=== PATIENT | male | born 1980 | race Caucasian/White ===

== ENCOUNTER 2024-05-26 15:37 | Emergency (ER) | payer BC, SELFPAY ==
--- NOTE | ~2024-05-26 | CT_ITS ---
EXAMINATION: CT FACIAL BONES WITH CONTRAST CLINICAL INFORMATION: Right orbit swelling. Jaw pain. COMPARISON: CT orbits dated 05/17/2024. TECHNIQUE: Contrast enhanced computed tomography of the facial bones was performed. 85 mL of Omnipaque [address] examination was performed using dose optimization techniques as appropriate, variously including the following: *Automated exposure control *Adjustment of mA and/or kV according to patient size (this includes techniques or standardized protocols for targeted exams where dose is matched to indication/reason for exam; i.e. extremities or head) *Use of iterative reconstruction technique DLP: 591 mGy-cm FINDINGS: There is mild right preseptal periorbital soft tissue swelling, similar to slightly less than that seen on examination dated 05/17/2024. There are no peripherally enhancing fluid collections suggest abscess and there is no extension into the post septal soft tissues. There is no acute facial bone fracture. There is a stable left maxillary sinus mucosal retention cyst. There is a leftward deviation of the nasal septum. The visualized brain parenchyma is normal in appearance. The mastoid air cells are clear. CT/CT facial bones w IV con IMPRESSION: There is mild right preseptal periorbital soft tissue swelling suggesting preseptal cellulitis. No acute facial bone fracture.
--- NOTE | 2024-05-26 15:40 | ED_ITS ---
HPI - Eye Problem General Chief complaint: Eye Problems Stated complaint: Eye infection, was told to come in by infectious Time Seen by Provider: 05/26/24 16:38 Source: patient Mode of arrival: ambulatory Limitations: no limitations History of Present Illness HPI Narrative: Patient is a 43-year-old male who presents to the emergency department for evaluation. He reports he was admitted to [facility] for a few days, discharged 05/12/2024 after treatment for right orbital cellulitis, received IV Unasyn, reporting he was discharged home with Bactrim and minocycline. Had an outpatient follow-up with his ENT yesterday, infection had not completely resolved and he was restarted on Bactrim. He is pending an outpatient MRI for further evaluation. He reports he additionally has been experiencing recurrent sinusitis at least monthly. He reports pain with movement of the eye, increasing swelling, blurred vision, and yellow discharge. Related Data Allergies Allergy/AdvReac Type Severity Reaction Status Date / Time acetaminophen [From Percocet] Allergy Unknown ITCHING Unverified 07/13/20 16:30 latex Allergy Rash Verified 05/26/24 15:44 nut - unspecified Allergy Anaphylaxis Verified 05/26/24 15:47 codeine [Codeine] AdvReac Intermediate ITCHING Unverified 07/13/20 16:30 cefprozil [From Cefzil] AdvReac Unknown VOMITING Unverified 07/13/20 16:30 From Percocet Allergy Unknown ITCHING Uncoded 07/13/20 16:30 Review of Systems 2 Review of Systems: Yes all other systems are reviewed and are negative PMFSH Past Medical History Attestation statement: The following information was validated with the patient. Source: old records reviewed Social History Social History Smoked in Last 30 Days: No Use of substances other than those prescribed or required for medical reasons: No Advance Directives: No Advance Directives Information Provided: No Physical Exam 2 Vital Signs: Vital Signs: Last Vital Signs Temp 98.3 F 05/26/24 20:00 Pulse 75 05/26/24 20:00 Resp 18 05/26/24 20:00 BP 125/83 05/26/24 20:00 Pulse Ox 96 05/26/24 20:00 O2 Del Method Room Air 05/26/24 20:00 BMI result Body Mass Index 34.8 Appearance: Alert.?Oriented to person, place and time. No acute distress.?Normal affect. Eyes: Pupils equal, round and reactive to light.? Right periorbital cellulitis, no exophthalmos, mild ptosis. Sclerae injected ENT: Pharynx normal.??Tenderness upon palpation over right maxillary sinus and along the mandible. TM normal bilaterally. Neck: Normal inspection.? Neck supple.?? CVS: Heart sounds normal. Normal heart rate and rhythm.? Pulses normal.?? Respiratory: No respiratory distress.? Lung sounds clear to auscultation bilaterally?? Abdomen: Soft and non-tender. Normoactive bowel sounds. Skin: Skin warm and dry.? Normal skin color.? Neuro: Moves all extremities spontaneously. Sensation intact bilaterally. Ambulates with normal steady gait. Course Course Course Narrative: This is a Rapid Medical Examination (RME) performed by Sandra Strong PA-C in triage. Full HPI, ROS, assessment and treatment plan per primary provider in the Main ED. 43 yo male here for eval of R eye infection x1 month. admitted to [facility] mid-april for orbital cellulitis. has been placed on Keflex, Unasyn, minocycline. Currently on Bactrim x4 days without improvement. now endorses pain extending from right eye into maxillary sinuses and into right [employer] continued blurred vision and discharge from the eye in the morning. called infectious disease office today who advised he come to the ED. + EOMs to right eye intact w/ pain. noted periorbital swelling. ttp of right maxillary sinus. Plan: labs, will need line for CT scan Reevaluation(s) Reevaluation #1: CT revealing evidence of mild preseptal soft tissue swelling, most suggestive of preseptal cellulitis which is consistent with physical examination today. His extraocular movements are intact though he does report increased pain with such. I discussed these findings with patient at this time, I recommend continued management with in the Bactrim he was prescribed by his specialist, and discussed close outpatient follow-up for his MRI as scheduled. All questions were answered, stable for discharge Medications Administered Discontinued Medications Generic Name Dose Route Start Last Admin Trade Name Freq PRN Reason Stop Dose Admin Sodium Chloride 1,000 mls @ 999 mls/hr 05/26/24 16:45 05/26/24 19:52 Ns IV 05/26/24 17:45 Infused .Q1H1M CANDY Infusion Iohexol 100 ml 05/26/24 17:39 05/26/24 17:39 Iohexol 350 Mg/Ml 100 Ml Infus..Btl IV 05/26/24 17:40 85 ml ONCE ONE Administration Medical Decision Making Medical Decision Making [facility] Narrative: Patient is a 43-year-old male with reported past medical history of Lupus, [place]'s disease who presents to the emergency department for evaluation of right eye swelling and pain as per HPI in the setting of recent reported orbital cellulitis. Attempting to obtain records from [facility]. CT to evaluate for evidence of orbital cellulitis, sinusitis versus periorbital cellulitis, conjunctivitis, chronic rhinosinusitis in addition to serum labs. Differential Diagnosis Differential Diagnoses: The differential diagnosis associated with the presentation includes (See narrative above) Admission/Observation Consideration of admission/observation: Escalation of care including admission/observation considered Lab Data [facility] Lab Attestation statement: I reviewed the patient's lab results. CBC reveals mild leukocytosis, no anemia or thrombocytopenia. BMP overall unremarkable, no SUNSHINE, mildly elevated AST/ALT. 05/26/24 16:12 05/26/24 16:12 Labs: Lab Results 05/26/24 05/26/24 Range/Units 16:12 17:23 WBC 13.7 H (4.8-10.8) X10*3/uL RBC 4.98 (4.60-5.80) X10*6/uL Hgb 15.2 (14.0-18.0) g/dl Hct 43.8 (42.0-52.0) % MCV 88.0 (80.0-98.0) fL MCH 30.5 (27.0-33.0) pg MCHC 34.7 (31.0-36.0) g/dl RDW 12.9 (11.0-16.0) % Plt Count 300 (160-400) X10*3/uL MPV 10.6 (9.4-12.4) fL Immature Gran % (Auto) 1.2 H (0.0-0.4) % Neut % (Auto) 67.1 (45-73) % Lymph % (Auto) 20.8 (20-40) % [place] % (Auto) 8.7 (2-11) % Eos % (Auto) 1.4 (0-4) % Baso % (Auto) 0.8 (0-2) % Lymph # (Auto) 2.9 (1.2-4.9) X10*3/uL [place] # (Auto) 1.2 (0.1-1.2) X10*3/uL Eos # (Auto) 0.2 (0.0-0.4) X10*3/uL Baso # (Auto) 0.1 (0.0-0.2) X10*3/uL Abs Immat Gran (auto) 0.17 H (0.00-0.03) X10*3/uL Absolute Neuts (auto) 9.2 H (2.0-8.3) x10*3/uL Absolute Nucleated RBC 0.000 (0.0-0.012) X10*3/uL Nucleated RBC % (auto) 0.0 (0.0-0.2) /100WBC ESR 6 (0-15) MM/HR Sodium 140 (135-145) mmol/L Potassium 4.4 (3.3-5.1) mmol/L Chloride 110 H (96-108) mmol/L Carbon Dioxide 21 L (22-29) mmol/L Anion Gap 13 (12-20) BUN 15 (9-16) mg/dL Creatinine 1.26 (0.5-1.4) mg/dL Estim Creat Clear Calc 102.4 Estimated GFR > 60 Random Glucose 98 (60-115) mg/dL Lactic Acid 1.5 (0.5-2.0) mmol/L Calcium 10.0 (8.4-10.2) mg/dL Magnesium 2.1 (1.6-2.6) mg/dL Total Bilirubin 0.3 (0.0-1.0) mg/dL AST 53 H (5-37) U/L ALT 95 H (0-40) U/L Alkaline Phosphatase 62 (39-117) U/L C-Reactive Protein 0.19 (< or = 0.50) mg/dL Total Protein 7.6 (6.5-8.0) g/dL Albumin 4.5 (3.5-5.0) g/dL Radiology Impression Discussion of test interpretation with radiology: I have reviewed the radiologist's reading. Radiologist Impression: CT/CT facial bones w IV con IMPRESSION: There is mild right preseptal periorbital soft tissue swelling suggesting preseptal cellulitis. No acute facial bone fracture. Prescription Management I considered prescription management with: Antibiotic Discharge Plan Discharge Clinical Impression: Periorbital cellulitis Patient Disposition: Home, Self-Care Instructions: Periorbital Cellulitis in Adults (ED) Additional Instructions: Continue taking your medication as prescribed. Follow-up with your doctors as scheduled. Return back to emergency department any new or worsening symptoms or concerns. Referrals: Physician,Unknown J [Primary Care Provider] - Print Language: Ukrainian
[2024-05-26 15:42] VITALS: BP 133/89; PULSE 105; RESP 18; TEMP 36.9; O2SAT 99; BMI 34.8
[2024-05-26 16:16] LABS: MANUAL DIFF FLAG NO
[2024-05-26 16:23] LABS: Basophils Absolute Auto 0.1 X10*3/uL (0.0-0.2); Basophils Percent Auto 0.8 % (0-2); Eosinophils Absolute Auto 0.2 X10*3/uL (0.0-0.4); Eosinophils Percent Auto 1.4 % (0-4); Hematocrit 43.8 % (42.0-52.0); Hemoglobin 15.2 g/dl (14.0-18.0); Imm Gran Abs Auto 0.17 X10*3/uL (0.00-0.03); Imm Gran Pct Auto 1.2 % (0.0-0.4); Lymphocytes Absolute Auto 2.9 X10*3/uL (1.2-4.9); Lymphocytes Percent Auto 20.8 % (20-40); Mean Corpuscular HGB Conc 34.7 g/dl (31.0-36.0); Mean Corpuscular Hemoglobin 30.5 pg (27.0-33.0); Mean Platelet Volume 10.6 fL (9.4-12.4); Monocytes Absolute Auto 1.2 X10*3/uL (0.1-1.2); Monocytes Percent Auto 8.7 % (2-11); Neutrophils Absolute Auto 9.2 x10*3/uL (2.0-8.3); Neutrophils Percent Auto 67.1 % (45-73); Platelet Count 300 X10*3/uL (160-400); Red Blood Count 4.98 X10*6/uL (4.60-5.80); Red Cell Distribution Width 12.9 % (11.0-16.0); White Blood Count 13.7 X10*3/uL (4.8-10.8)
[2024-05-26 16:35] LABS: Alanine Aminotransferase 95 U/L (0-40); Albumin Level 4.5 g/dL (3.5-5.0); Alkaline Phosphatase 62 U/L (39-117); Anion Gap 13 (12-20); Aspartate Amino Transferase 53 U/L (5-37); Bilirubin Total 0.3 mg/dL (0.0-1.0); Blood Urea Nitrogen 15 mg/dL (9-16); C Reactive Protein 0.19 mg/dL (< or = 0.50); Carbon Dioxide 21 mmol/L (22-29); Chloride 110 mmol/L (96-108); Creatinine Clr Calc Pharmacy 102.4; Estimated Glomerular Filt Rate > 60; Glucose Random 98 mg/dL (60-115); Magnesium 2.1 mg/dL (1.6-2.6); Potassium 4.4 mmol/L (3.3-5.1); Sodium 140 mmol/L (135-145); Total Protein 7.6 g/dL (6.5-8.0)
[2024-05-26 16:57] VITALS: BP 141/85; PULSE 90; RESP 18; TEMP 36.7; O2SAT 96
[2024-05-26] MEDS: 0.9 % Sodium Chloride 1,000 ML 999 ML IV (17:26)
[2024-05-26 17:39] LABS: Erythrocyte Sedimentation Rate 6 MM/HR (0-15)
[2024-05-26] MEDS: iohexoL 350 MG/ML 100 ML INFUS..BTL IV (17:39)
[2024-05-26 17:45] LABS: Lactic Acid 1.5 mmol/L (0.5-2.0)
[2024-05-26 18:50] VITALS: BP 147/82; PULSE 80; RESP 20; TEMP 37; O2SAT 96
[2024-05-26 20:00] VITALS: BP 125/83; PULSE 75; RESP 18; TEMP 36.8; O2SAT 96
--- NOTE | 2024-05-26 20:05 | MHC.EDTECH ---
This tech took over care of patient at 1900,rounds and vitals completed,patient is resting comfortably
[2024-05-26 20:18] VITALS: BP 125/83; PULSE 75; RESP 18; TEMP 36.8; O2SAT 96
== END 2024-05-26 20:19 | disposition home or self-care (01) ==
PROVIDERS: Nurse Practitioner Family; Physician Assistant Medical; Emergency Provider Emergency Medicine
DX: L03.213 Periorbital cellulitis (principal); Z79.899 Other long term (current) drug therapy
CPT/HCPCS: 36415; 70487; 80053; 83605; 83735; 85025; 85652; 86140; 87040; 96360; 96361; 99284; Q9967